=== PATIENT | female | born 2000 | race African-American/Black ===

== ENCOUNTER 2022-12-24 07:30 | Emergency (ER) | payer MEDICAID, OTHER ==
[~2022-12-24] VITALS: Ht 157.5 cm; Wt 79.5 kg
[2022-12-24 08:01] VITALS: BP 125/69
[2022-12-24 09:16] LABS: BASOPHILS % 0.1 % (0.0-2.0); EOSINOPHILS % 0.2 % (0.0-5.0); HEMATOCRIT. 36.9 % (36.0-48.0); HEMOGLOBIN. 12.6 g/dL (12.0-16.0); LYMPHOCYTES % 8.7 % (20.0-50.0); MEAN CORPUSCULAR HEMOGLOBIN 27.6 pg (28.0-32.0); MEAN CORPUSCULAR VOLUME 80.5 fL (81.0-99.0); MEAN PLATELET VOLUME 8.8 fl (7.4-10.4); MONOCYTES % 6.2 % (2.0-8.0); NEUTROPHILS % 84.8 % (40.0-76.0); PLATELET 230 x1000/uL (130-400); RED BLOOD CELL COUNT 4.58 mill/uL (4.2-5.4); RED CELL DISTRIBUTION WIDTH 13.2 % (11.6-14.6)
[2022-12-24 09:20] LABS: CLARITY URINE TURBID (CLEAR); COLOR URINE ORANGE (YELLOW); KETONES URINE TRACE (NEGATIVE); LEUKOCYTE ESTERASE URINE 3+ (NEGATIVE); NITRITE URINE NEGATIVE (NEGATIVE); OCCULT BLOOD URINE 3+ (NEGATIVE); PROTEIN URINE 1+ (NEGATIVE); SPECIFIC GRAVITY URINE 1.018 (1.005-1.030)
[2022-12-24 09:29] LABS: CHLORIDE 106 mEq/L (98-107)
[2022-12-24 09:50] LABS: HCG SCREEN NEGATIVE
[2022-12-24] MEDS ORDERED: NITR100C PO (10:04)
[2022-12-24] MEDS ORDERED: TOPUD PO (10:04)
== END 2022-12-24 10:19 | disposition home or self-care (01) ==
LOC: ER 07:53
DX: N39.0 Urinary tract infection, site not specified (principal); Z20.822 Contact with and (suspected) exposure to COVID-19
CPT/HCPCS: 36415; 71045; 80053; 81003; 81025; 84703; 85025; 87077; 87086; 87186; 87426; 99284; C9803